=== PATIENT | male | born 1950 | race Caucasian/White ===

== ENCOUNTER 2016-08-14 18:51 | Emergency (ER) | payer SELFPAY ==
--- NOTE | 2016-08-14 19:44 | ERNOTE ---
Cardiopulmonary Resuscitation Presenting Symptoms: found unresponsive Time Seen by Provider: 08/14/16 18:51 Source: EMS Exam Limitations: clinical condition Narrative: Patient last talked to his son on the phone about an hours prior to being found unresponsive in his hotel room. On EMS arrival the patient was unresponsive, not breathing, pulseless, asytolie on monitor. CPR and bag mask ventilation was started. Apparently the patient was recently diagnosed with cancer, no further history is available Initial Findings by EMS - Mentation: unresponsive Initial Findings by EMS - Respirations: none Initial Findings by EMS - Pulse: none Initial Findings by EMS - Rhythm: asystole Code Timing: Present: still present Review of Systems - Narrative Narrative: unable to obtain - Narrative Narrative: unable to obtain Physical Exam - Physical Exam General Appearance: Present: other - unresponsive Eye Exam: Other: bilateral - fixed and dilated Ears, Nose, Throat: Present: other - no signs of injury Neck: Present: normal inspection Respiratory: Present: other - no spontaneous respirations, after intubation, equal breathsounds Gastrointestinal/Abdominal: Present: nondistended, soft Extremity Exam: Present: other - no signs of injury Neurological Exam: Present: other - unresponsive Skin Exam: Present: pallor ED Progress - Vital Signs Patient's Vital Signs:: I have reviewed the patient's vital signs. - Progress/Reassessment Chief Complaint: Code Blue Progress Note-Subjective: 08/14/16 18:55 talked to ex , explained futility of continued CPR, wants to see patient, taken to room while CPR in progress, initially wants us to continue inspite of asytolie on rhythm check at 19:04 asked to stop CPR see also code sheet Procedures Date and Time: 08/14/16 18:53 Intubation Method: orotracheal Tube Size (cm): 8.0 Breath Sounds after Intubation: equal Intubation Complications: no complications Post Intubation Xray: No Comments: intubated with glidescope, tube visualized passing the cords, adequate CO2 Departure Clinical Impression: Unsuccessful cardiopulmonary resuscitation - Departure Condition:
--- OUTSIDE RECORDS SUMMARY | 2016-08-14 20:02 | XMS REPORT | Continuity of Care Document ---
:1950 Author Organization [facility] ([facility]) [place] [address] Phone [phone] Care Team Providers Name Role Phone Unavailable Primary Care Provider Unavailable Source Comments This disclosure is being made pursuant to the Care Everywhere program, applicable federal and state laws, and may not contain all informaitonavailable regarding this patient.[facility] ([facility]) Active Allergies and Adverse Reactions Not on File Current Medications Not on file Active Problems Not on file Social History Tobacco Use Types Packs/Day Years Used Date Never Assessed Plan of Care Health Maintenance Due Date Last Done Comments HCV Screening 1950 Hepatitis B Vaccine (1 of 3 - Primary Series) 1950 Tdap Vaccine 1961 Lipid Disorder Screening 1968 Td Vaccine 1968 Colonoscopy 06/04/2000 Prostate Cancer Screening 2000 Zoster Vaccine 2010 Pneumococcal Vaccine (1 of 2 - PCV13) 2015 Influenza Vaccine: Seasonal (#1) 01/29/2016 Results from Last 3 Months Not on file
== END 2016-08-14 22:30 | disposition expired ==
LOC: ER 18:51
PROC: 0BH17EZ Insertion of Endotracheal Airway into Trachea, Via Natural or Artificial Opening (ICD-10-PCS; principal; 2016-08-14)
PROC: 5A12012 Performance of Cardiac Output, Single, Manual (ICD-10-PCS; 2016-08-14)
DX: I46.9 Cardiac arrest, cause unspecified (principal)